=== PATIENT | female | born 1965 | race Caucasian/White ===

== ENCOUNTER 2022-07-05 18:20 | Emergency (ER) | payer OTHER ==
[~2022-07-05] VITALS: Ht 162.6 cm; Wt 65.3 kg
[~2022-07-05 18:20] MED LIST: CIPROFLOXACIN500 MG PO; CYCLOBENZAPRINE10 MG PO; ESTROGEN-METHY1 EAC3 PO; FLEXERIL10 MG PO; KETOPROFEN50 MG PO; NAPROXEN500 MG PO; NORCO 5-325 TA1 EACH PO; TRAMADOL HCL50 MG PO; VALIUM5 MG PO
[2022-07-05] MEDS ORDERED: MACROBID 100 M100 MG PO (19:10)
[2022-07-05] MEDS ORDERED: PYRIDIUM100 MG PO (19:10)
== END 2022-07-05 19:22 | disposition home or self-care (01) ==
LOC: ED 18:20
DX: N39.0 Urinary tract infection, site not specified (principal); Z87.891 Personal history of nicotine dependence; Z88.2 Allergy status to sulfonamides; Z88.5 Allergy status to narcotic agent; Z88.1 Allergy status to other antibiotic agents
CPT/HCPCS: 81001; 99283

== ENCOUNTER 2022-08-23 19:12 | Emergency (ER) | payer OTHER ==
[~2022-08-23] VITALS: Ht 162.6 cm; Wt 74.2 kg
[~2022-08-23 19:12] MED LIST changes: +MACROBID 100 M100 MG PO; +PYRIDIUM100 MG PO
[2022-08-23] MEDS ORDERED: OMEPRAZOLE20 MG PO (20:13)
[2022-08-23] MEDS ORDERED: CYCLOBENZAPRINE5 MG PO (20:14)
[2022-08-23] MEDS ORDERED: PYRIDIUM100 MG PO (21:13)
[2022-08-23] MEDS ORDERED: MACROBID 100 M100 MG PO (21:13)
== END 2022-08-23 21:30 | disposition home or self-care (01) ==
LOC: ED 19:12
DX: N39.0 Urinary tract infection, site not specified (principal); Z87.891 Personal history of nicotine dependence; Z88.2 Allergy status to sulfonamides; Z88.5 Allergy status to narcotic agent; Z88.1 Allergy status to other antibiotic agents; Z79.899 Other long term (current) drug therapy
CPT/HCPCS: 81001; 99283

== ENCOUNTER 2024-03-28 16:52 | Emergency (ER) | payer OTHER ==
[~2024-03-28] VITALS: Ht 162.6 cm; Wt 73.3 kg
[~2024-03-28 16:52] MED LIST changes: +CYCLOBENZAPRINE5 MG PO; +HYDROCODON-ACE1 EA10 PO; +LIDODERM1 EACH TOP; +OMEPRAZOLE20 MG PO; +PREDNISONE20 MG PO
[2024-03-28 17:23] LABS: BILIRUBIN, URINE NEGATIVE (negative); BLOOD/HGB, URINE LARGE (Negative); KETONE, URINE NEGATIVE (Negative); LEUK ESTERASE, URINE SMALL (negative); NITRITE, URINE NEGATIVE (negative); PH, URINE 5.5 (5-7)
[2024-03-28 17:29] LABS: RED BLOOD CELLS, URINE >50 /hpf (0-5)
[2024-03-28 17:30] LABS: BACTERIA, URINE 1+ /hpf (negative); CASTS, URINE NONE SEEN \\lpf; COLLECTION TYPE, URINE CLEAN CATCH; CRYSTALS, URINE NONE SEEN (0-1+); REFLEX CULTURE, URINE Yes (No); WHITE BLOOD CELLS, URINE 41-50 /HPF (0-5)
[2024-03-28] MEDS ORDERED: KETOROLAC TROMETHAMINE 30 MG/ML VIAL IV ONE (17:45)
[2024-03-28] MEDS ORDERED: SODIUM CHLORIDE 0.9% 1,000 ML IV ONE (17:45)
[2024-03-28] MEDS ORDERED: ondansetron HCL 4 MG/2 ML VIAL IV ONE (17:45)
[2024-03-28 17:58] LABS: BASOPHILS 0.8 % (0-2); EOSINOPHILS 1.3 % (0-6); HEMATOCRIT 42.9 % (35.0-50.0); HEMOGLOBIN 14.8 g/dL (12.0-18.0); LYMPHOCYTES 32.2 % (24-44); MCH 28.7 (27-36); MCHC 34.4 g/dl (30-36); MCV 83.5 fl (81-99); MONOCYTES 5.7 % (0-12); PLATELET COUNT 243 K/uL (140-440); RBC 5.14 M/ul (4.3-5.7); RDW 14.2 (10.5-15.0)
[2024-03-28 18:15] LABS: ALBUMIN 3.7 g/dL (3.4-5.0); ALBUMIN/GLOBULIN RATIO 0.95 (1.1-2.4); ANION GAP 10.7 (7-21); BILIRUBIN, TOTAL 0.5 ng/dL (0.2-1.0); BUN/CREATININE RATIO 18.07 (6.0-28.6); CALCIUM 9.3 mg/dL (8.5-10.1); CREATININE, SERUM 0.83 mg/dL (0.55-1.02); POTASSIUM 3.7 mmol/L (3.5-5.1); PROTEIN, TOTAL 7.6 g/dL (6.4-8.2)
[2024-03-28] MEDS ORDERED: CEFDINIR 300 MG CAP PO ONE (18:30)
[2024-03-28] MEDS ORDERED: KETOROLAC TROME10 MG PO (18:40)
[2024-03-28] MEDS ORDERED: CEFDINIR300 MG PO (18:40)
[2024-03-28] MEDS ORDERED: PYRIDIUM200 MG PO (18:40)
[2024-03-28 18:59] VITALS: BP 128/85
== END 2024-03-28 19:01 | disposition home or self-care (01) ==
LOC: ED 16:52
PROVIDERS: Emergency Medicine
DX: N39.0 Urinary tract infection, site not specified (principal); N20.0 Calculus of kidney; Z87.891 Personal history of nicotine dependence; Z88.2 Allergy status to sulfonamides; Z88.1 Allergy status to other antibiotic agents; Z88.8 Allergy status to other drugs, medicaments and biological substances; Z79.899 Other long term (current) drug therapy
CPT/HCPCS: 36415; 74176; 80053; 81001; 85025; 87077; 87088; 87186; 96374; 96375; 99284-25; J1885; J2405; J7030